=== PATIENT | male | born 1940 | race Caucasian/White ===

== ENCOUNTER 2021-10-24 04:34 | Inpatient (IN) ==
[2021-10-24] MEDS ORDERED: Droperidol 5 MG/2 ML 2 ML VIAL IV ONE (04:50)
[2021-10-24] MEDS ORDERED: Lactated Ringers 1000 ml BAG 1,000 ML IV ONE (04:50)
[2021-10-24 06:46] LABS: Troponin I 0.01 ng/mL (<0.03)
[2021-10-24 06:47] LABS: Albumin 2.8 g/dL (3.2-5.2); Albumin/Globulin Ratio 1.4 (1-3); Calcium 7.4 mg/dL (8.6-10.3); Potassium 3.2 mmol/L (3.5-5.0); Total Bilirubin 0.6 mg/dL (0.2-1.0); Total Protein 4.8 g/dL (6.4-8.9); eGFR CKD-EPI 77.9 (>60)
[2021-10-24] MEDS ORDERED: Potassium Chlor 20 meq TAB.ER PO ONE (07:43)
[2021-10-24] MEDS ORDERED: Lactated Ringers 500 ml BAG 500 ML IV ONE (07:44)
[2021-10-24] MEDS: KCL 20 MEQ/100 ML IVPREMIX 20 MEQ/100 ML BAG IV SCH ×2 (08:53→10:55)
[2021-10-24 08:59] LABS: Hematocrit 29 % (42-52); Hemoglobin 9.7 g/dL (14.0-18.0); Mean Corpuscular HGB Conc 34 g/dL (31-36); Mean Corpuscular Hemoglobin 32 pg (27-31); Mean Corpuscular Volume 94 fL (80-94); Mean Platelet Volume 8.1 fL (7.4-10.4); Platelet Count 133 10^3/uL (150-450); Red Blood Count 3.04 10^6 /uL (4.18-5.48); Red Cell Distribution Width 17 % (10-15); White Blood Count 1.3 10^3/uL (3.5-10.8)
[2021-10-24 09:12] LABS: ABS Neutrophils 0.8 10^3/ul (1.5-7.7)
[2021-10-24 09:24] LABS: ABS Lymphocytes 0.4 10^3/ul (1.0-4.8); ABS Monocytes 0.1 10^3/ul (0-0.8); Eosinophil % 0.3 %; Lymphocyte % 30.7 %; Nucleated Red Blood Cells % 0.4
[2021-10-24] MEDS ORDERED: Palonosetron 0.25 MG in NS 0.9% 50 ML 50 ML IVPB ONE (09:53)
[2021-10-24] MEDS: Enoxaparin 40 MG/0.4 ML SYR SUBCUT SCH (10:55)
[2021-10-24] MEDS: NS 0.9% 1000 ml BAG 1,000 ML IV SCH ×2 (13:17→23:31)
[2021-10-25] MEDS: NS 0.9% 1000 ml BAG 1,000 ML IV SCH ×2 (09:10→19:31)
[2021-10-25] MEDS: Potassium Chlor 20 meq TAB.ER PO SCH (09:10)
[2021-10-25] MEDS: Enoxaparin 40 MG/0.4 ML SYR SUBCUT SCH (09:10)
[2021-10-25 09:22] LABS: Hematocrit 33 % (42-52); Mean Corpuscular HGB Conc 34 g/dL (31-36); Mean Corpuscular Hemoglobin 32 pg (27-31); Mean Corpuscular Volume 95 fL (80-94); Mean Platelet Volume 8.4 fL (7.4-10.4); Platelet Count 133 10^3/uL (150-450); Red Blood Count 3.44 10^6 /uL (4.18-5.48); Red Cell Distribution Width 18 % (10-15); White Blood Count 2.2 10^3/uL (3.5-10.8)
[2021-10-25 09:31] LABS: ABS Lymphocytes 0.4 10^3/ul (1.0-4.8); ABS Monocytes 0.1 10^3/ul (0-0.8); ABS Neutrophils 1.6 10^3/ul (1.5-7.7); Eosinophil % 1.7 %; Lymphocyte % 18.9 %; Nucleated Red Blood Cells % 0.1
[2021-10-25 09:39] LABS: Albumin 2.6 g/dL (3.2-5.2); Albumin/Globulin Ratio 1.4 (1-3); Calcium 7.4 mg/dL (8.6-10.3); Globulin 1.8 g/dL (2-4); Potassium 3.2 mmol/L (3.5-5.0); Total Bilirubin 0.4 mg/dL (0.2-1.0); Total Protein 4.4 g/dL (6.4-8.9); eGFR CKD-EPI 92.8 (>60)
[2021-10-25 10:09] LABS: RBC Morphology Normal (Normal); Toxic Granulation 1+
[2021-10-25 10:44] LABS: Magnesium 1.7 mg/dL (1.9-2.7)
[2021-10-25] MEDS: KCL 20 MEQ/100 ML IVPREMIX 20 MEQ/100 ML BAG IV SCH ×2 (11:25→14:23)
[2021-10-26 05:36] LABS: Albumin 2.3 g/dL (3.2-5.2); Albumin/Globulin Ratio 1.4 (1-3); Calcium 7.4 mg/dL (8.6-10.3); Globulin 1.7 g/dL (2-4); Magnesium 1.7 mg/dL (1.9-2.7); Potassium 3.3 mmol/L (3.5-5.0); Total Bilirubin 0.3 mg/dL (0.2-1.0); eGFR CKD-EPI 92.8 (>60)
[2021-10-26 05:39] LABS: ABS Lymphocytes 0.4 10^3/ul (1.0-4.8); ABS Monocytes 0.1 10^3/ul (0-0.8); ABS Neutrophils 1.4 10^3/ul (1.5-7.7); Eosinophil % 2.1 %; Hematocrit 29 % (42-52); Hemoglobin 9.9 g/dL (14.0-18.0); Mean Corpuscular HGB Conc 34 g/dL (31-36); Mean Corpuscular Hemoglobin 32 pg (27-31); Mean Corpuscular Volume 95 fL (80-94); Mean Platelet Volume 8.6 fL (7.4-10.4); Nucleated Red Blood Cells % 0.1; Platelet Count 92 10^3/uL (150-450); Red Blood Count 3.08 10^6 /uL (4.18-5.48); Red Cell Distribution Width 18 % (10-15)
[2021-10-26] MEDS: NS 0.9% 1000 ml BAG 1,000 ML IV SCH ×2 (06:52→18:18)
[2021-10-26] MEDS: Potassium Chlor 20 meq TAB.ER PO SCH (08:58)
[2021-10-26] MEDS: Enoxaparin 40 MG/0.4 ML SYR SUBCUT SCH (08:58)
[2021-10-26] MEDS ORDERED: Magnesium Sulfate 2 gm BAG 2 GM/50 ML BAG IVPB ONE (09:30)
[2021-10-26] MEDS ORDERED: COVID-19 VACCINE, MRNA(MODERNA)/PF 100 MCG/0.5 ML IM ONE (10:10)
[2021-10-26] MEDS: KCL 20 MEQ/100 ML IVPREMIX 20 MEQ/100 ML BAG IV SCH ×2 (11:58→14:58)
[2021-10-26] MEDS: Pancrelipase 5,000 units CAP PO SCH ×2 (12:00→16:10)
[2021-10-27] MEDS: NS 0.9% 1000 ml BAG 1,000 ML IV SCH (04:35)
[2021-10-27] MEDS: Pancrelipase 5,000 units CAP PO SCH ×3 (07:52→17:39)
[2021-10-27] MEDS: Potassium Chlor 20 meq TAB.ER PO SCH (09:00)
[2021-10-27] MEDS: Enoxaparin 40 MG/0.4 ML SYR SUBCUT SCH (09:01)
[2021-10-27] MEDS: Diphenoxylat/Atrop 2.5-0.025mg TAB PO PRN (14:45)
[2021-10-28] MEDS: Diphenoxylat/Atrop 2.5-0.025mg TAB PO PRN (03:41)
[2021-10-28 05:36] LABS: Calcium 7.9 mg/dL (8.6-10.3); Hematocrit 32 % (42-52); Hemoglobin 10.8 g/dL (14.0-18.0); Mean Corpuscular HGB Conc 34 g/dL (31-36); Mean Corpuscular Hemoglobin 32 pg (27-31); Mean Corpuscular Volume 96 fL (80-94); Mean Platelet Volume 9.3 fL (7.4-10.4); Platelet Count 81 10^3/uL (150-450); Potassium 3.2 mmol/L (3.5-5.0); Red Blood Count 3.34 10^6 /uL (4.18-5.48); Red Cell Distribution Width 18 % (10-15); White Blood Count 1.1 10^3/uL (3.5-10.8); eGFR CKD-EPI 62.2 (>60)
[2021-10-28 05:56] LABS: ABS Lymphocytes 0.3 10^3/ul (1.0-4.8); ABS Monocytes 0.3 10^3/ul (0-0.8); ABS Neutrophils 0.5 10^3/ul (1.5-7.7); Eosinophil % 0.1 %; Lymphocyte % 24.7 %; RBC Morphology Normal (Normal)
[2021-10-28] MEDS: Pancrelipase 5,000 units CAP PO SCH ×3 (08:03→16:44)
[2021-10-28] MEDS: Potassium Chlor 20 meq TAB.ER PO SCH (08:03)
[2021-10-28] MEDS: Enoxaparin 40 MG/0.4 ML SYR SUBCUT SCH (10:49)
[2021-10-28] MEDS: KCL 20 MEQ/100 ML IVPREMIX 20 MEQ/100 ML BAG IV SCH ×2 (12:27→15:39)
[2021-10-29 07:39] LABS: Calcium 7.8 mg/dL (8.6-10.3); Potassium 3.3 mmol/L (3.5-5.0); eGFR CKD-EPI 41.2 (>60)
[2021-10-29] MEDS: Pancrelipase 5,000 units CAP PO SCH ×3 (07:49→15:59)
[2021-10-29] MEDS: Potassium Chlor 20 meq TAB.ER PO SCH (09:38)
[2021-10-29] MEDS: Enoxaparin 40 MG/0.4 ML SYR SUBCUT SCH (09:41)
[2021-10-29 11:25] LABS: ABS Lymphocytes 0.3 10^3/ul (1.0-4.8); ABS Monocytes 0.1 10^3/ul (0-0.8); Eosinophil % 0.1 %; Hematocrit 31 % (42-52); Hemoglobin 10.3 g/dL (14.0-18.0); Lymphocyte % 8.9 %; Mean Corpuscular HGB Conc 34 g/dL (31-36); Mean Corpuscular Hemoglobin 32 pg (27-31); Mean Corpuscular Volume 96 fL (80-94); Mean Platelet Volume 9.2 fL (7.4-10.4); Nucleated Red Blood Cells % 0.2; Platelet Count 80 10^3/uL (150-450); Red Blood Count 3.19 10^6 /uL (4.18-5.48); Red Cell Distribution Width 19 % (10-15); White Blood Count 3.4 10^3/uL (3.5-10.8)
[2021-10-29] MEDS: Cefepime 1 GM in Dextrose 1 GM/50 ML BAG IV SCH ×2 (11:29→23:25)
[2021-10-29 11:45] LABS: Calcium 7.9 mg/dL (8.6-10.3); Magnesium 1.9 mg/dL (1.9-2.7); Potassium 3.1 mmol/L (3.5-5.0); eGFR CKD-EPI 42.1 (>60)
[2021-10-29 11:46] LABS: RBC Morphology Normal (Normal); Toxic Granulation 1+
[2021-10-29] MEDS: Diphenoxylat/Atrop 2.5-0.025mg TAB PO PRN (13:07)
[2021-10-29] MEDS: NS 0.9% 1000 ml BAG 1,000 ML IV SCH (13:07)
[2021-10-29] MEDS: KCL 20 MEQ/100 ML IVPREMIX 20 MEQ/100 ML BAG IV SCH ×2 (13:07→15:21)
[2021-10-30] MEDS: NS 0.9% 1000 ml BAG 1,000 ML IV SCH (03:01)
[2021-10-30] MEDS: Pancrelipase 5,000 units CAP PO SCH ×3 (09:36→17:26)
[2021-10-30 09:45] LABS: RBC Morphology Normal (Normal); Toxic Granulation 2+
[2021-10-30 09:46] LABS: ABS Lymphocytes 0.2 10^3/ul (1.0-4.8); ABS Monocytes 0.1 10^3/ul (0-0.8); Hematocrit 35 % (42-52); Hemoglobin 11.8 g/dL (14.0-18.0); Lymphocyte % 2.1 %; Mean Corpuscular HGB Conc 34 g/dL (31-36); Mean Corpuscular Hemoglobin 32 pg (27-31); Mean Corpuscular Volume 96 fL (80-94); Mean Platelet Volume 9.4 fL (7.4-10.4); Nucleated Red Blood Cells % 0.1; Platelet Count 105 10^3/uL (150-450); Red Blood Count 3.65 10^6 /uL (4.18-5.48); Red Cell Distribution Width 19 % (10-15); White Blood Count 10.3 10^3/uL (3.5-10.8)
[2021-10-30] MEDS: Enoxaparin 30 MG/0.3 ML SYR SUBCUT SCH (09:48)
[2021-10-30] MEDS: Potassium Chlor 20 meq TAB.ER PO SCH (09:50)
[2021-10-30 10:30] LABS: Albumin 2.3 g/dL (3.2-5.2); Globulin 2.3 g/dL (2-4); Potassium 3.5 mmol/L (3.5-5.0); Total Bilirubin 0.4 mg/dL (0.2-1.0); Total Protein 4.6 g/dL (6.4-8.9); eGFR CKD-EPI 31.4 (>60)
[2021-10-30] MEDS ORDERED: Sodium Bicarb 8.4% Vial 50 ML 50 MEQ in D5W 1000 ml BAG 1,000 ML IV SCH (11:00)
[2021-10-30] MEDS: Cefepime 1 GM in Dextrose 1 GM/50 ML BAG IV SCH ×2 (11:04→22:26)
[2021-10-30] MEDS: Diphenoxylat/Atrop 2.5-0.025mg TAB PO PRN ×2 (14:45→17:47)
[2021-10-31] MEDS ORDERED: Sodium Bicarb 8.4% Vial 50 ML 50 MEQ in D5W 1000 ml BAG 1,000 ML IV SCH ×2 (03:00→11:00)
[2021-10-31 05:05] LABS: Hematocrit 30 % (42-52); Hemoglobin 10.2 g/dL (14.0-18.0); Mean Corpuscular HGB Conc 34 g/dL (31-36); Mean Corpuscular Hemoglobin 32 pg (27-31); Mean Corpuscular Volume 95 fL (80-94); Mean Platelet Volume 9.3 fL (7.4-10.4); Platelet Count 90 10^3/uL (150-450); Red Blood Count 3.19 10^6 /uL (4.18-5.48); Red Cell Distribution Width 20 % (10-15)
[2021-10-31 05:12] LABS: Albumin 2.2 g/dL (3.2-5.2); Calcium 7.5 mg/dL (8.6-10.3); Globulin 2.2 g/dL (2-4); Potassium 2.9 mmol/L (3.5-5.0); Total Bilirubin 0.3 mg/dL (0.2-1.0); Total Protein 4.4 g/dL (6.4-8.9); eGFR CKD-EPI 27.8 (>60)
[2021-10-31] MEDS: Pancrelipase 5,000 units CAP PO SCH ×3 (08:30→14:44)
[2021-10-31] MEDS: Potassium Chlor 20 meq TAB.ER PO SCH (08:31)
[2021-10-31 08:47] LABS: ABS Lymphocytes 0.3 10^3/ul (1.0-4.8); ABS Monocytes 0.1 10^3/ul (0-0.8); ABS Neutrophils 3.6 10^3/ul (1.5-7.7); Lymphocyte % 6.8 %; Nucleated Red Blood Cells % 0.3
[2021-10-31] MEDS: Enoxaparin 30 MG/0.3 ML SYR SUBCUT SCH (08:50)
[2021-10-31] MEDS ORDERED: NS 0.9% 500 ml BAG 500 ML IV ONE (10:18)
[2021-10-31] MEDS ORDERED: NS 0.9% 1000 ml BAG 1,000 ML IV SCH (10:30)
[2021-10-31] MEDS ORDERED: NS 0.9% w/ 20 Meq KCL 1000 ml 1,000 ML IV SCH (11:00)
[2021-10-31] MEDS: KCL 10 MEQ/50 ML IVPREMIX 10 MEQ/50 ML BAG IV SCH ×3 (12:56→14:50)
[2021-10-31] MEDS: Sodium Bicarb 8.4% Vial 50 ML 50 MEQ in D5W 1000 ml BAG 1,000 ML IV SCH ×4 (15:59→21:58)
[2021-11-01] MEDS: Sodium Bicarb 8.4% Vial 50 ML 50 MEQ in D5W 1000 ml BAG 1,000 ML IV SCH ×4 (03:15→17:51)
[2021-11-01] MEDS: Enoxaparin 30 MG/0.3 ML SYR SUBCUT SCH (09:14)
[2021-11-01] MEDS: Pancrelipase 5,000 units CAP PO SCH ×3 (09:16→14:33)
[2021-11-01] MEDS: Potassium Chlor 20 meq TAB.ER PO SCH (09:16)
[2021-11-01] MEDS ORDERED: Fluconazole 400 MG IVPREMIX 400 MG/200 ML BAG IVPB ONE (12:00)
[2021-11-01 12:19] LABS: Urine Appearance Cloudy; Urine Bilirubin Negative (Negative); Urine Blood 1+ (Negative); Urine Color Yellow; Urine Glucose 1+(50 mg/dL) (Negative); Urine Ketones Negative (Negative); Urine Nitrite Negative (Negative); Urine Protein 1+(30 mg/dL) (Negative); Urine Specific Gravity 1.017 (1.002-1.030); Urine Urobilinogen Negative (Negative)
[2021-11-01 12:51] LABS: Urine Bacteria 1+ (Absent); Urine Red Blood Cell Trace(0-2/hpf) (Absent); Urine Squamous Epithelial Cell Present (Absent); Urine White Blood Cell Trace(0-5/hpf) (Absent)
[2021-11-01 13:03] LABS: Hematocrit 29 % (42-52); Hemoglobin 9.8 g/dL (14.0-18.0); Mean Corpuscular HGB Conc 34 g/dL (31-36); Mean Corpuscular Hemoglobin 32 pg (27-31); Mean Corpuscular Volume 94 fL (80-94); Mean Platelet Volume 9.7 fL (7.4-10.4); Platelet Count 77 10^3/uL (150-450); Red Blood Count 3.04 10^6 /uL (4.18-5.48); Red Cell Distribution Width 19 % (10-15); White Blood Count 0.5 10^3/uL (3.5-10.8)
[2021-11-01 13:04] LABS: Albumin 2.2 g/dL (3.2-5.2); Calcium 7.4 mg/dL (8.6-10.3); Globulin 2.2 g/dL (2-4); Magnesium 1.6 mg/dL (1.9-2.7); Potassium 3.3 mmol/L (3.5-5.0); Total Bilirubin 0.7 mg/dL (0.2-1.0); Total Protein 4.4 g/dL (6.4-8.9); eGFR CKD-EPI 28.4 (>60)
[2021-11-01 14:10] LABS: ABS Lymphocytes 0.1 10^3/ul (1.0-4.8); ABS Neutrophils 0.2 10^3/ul (1.5-7.7); Eosinophil % 0.5 %; Lymphocyte % 23.2 %; Nucleated Red Blood Cells % 1.1
[2021-11-01 14:11] LABS: Burr Cells 1+; Microcytosis 1+
[2021-11-01] MEDS ORDERED: KCL 20 MEQ/100 ML IVPREMIX 20 MEQ/100 ML BAG IV ONE (14:50)
[2021-11-01] MEDS ORDERED: Magnesium Sulf 4 GM/100 ML IV 4,000 MG/100 ML BAG IVPB ONE (17:10)
[2021-11-01] MEDS ORDERED: Morphine 2 MG/ML SYRINGE IV PRN ×2 (19:34→20:23)
[2021-11-01] MEDS ORDERED: Morphine 2 MG/ML SYRINGE IV ONE (19:34)
[2021-11-01] MEDS ORDERED: ZOSYN 3.375 GM x ONE DOSE over 30 miuntes IV (20:00)
[2021-11-01 21:07] VITALS: BP 61/39
[2021-11-02] MEDS: Morphine 2 MG/ML SYRINGE IV PRN ×2 (00:17→03:39)
[2021-11-02] MEDS ORDERED: Fluconazole 200 MG IVPREMIX 200 MG/100 ML BAG IVPB SCH (12:00)
== END 2021-11-02 07:12 | disposition expired | DRG 435 ==
LOC: ED 04:34 → SSU 09:49
PROVIDERS: ADMIT Internal Medicine Hematology & Oncology; ATTEND Internal Medicine Hematology & Oncology